=== PATIENT | male | born 1970 | race Caucasian/White ===

== ENCOUNTER 2016-08-10 23:39 | Emergency (ER) | payer MEDICARE, OTHER | END 2016-08-10 23:45 | disposition home or self-care (01) | LOC: CED 23:39 | DX: F11.10 Opioid abuse, uncomplicated (principal); F17.210 Nicotine dependence, cigarettes, uncomplicated; V49.40XA Driver injured in collision with unspecified motor vehicles in traffic accident, initial encounter | CPT/HCPCS: 99283 ==

== ENCOUNTER 2016-10-09 18:05 | Emergency (ER) | payer MEDICARE, OTHER ==
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
== END 2016-10-09 21:29 | disposition home or self-care (01) ==
LOC: CED 18:05
DX: T65.91XA Toxic effect of unspecified substance, accidental (unintentional), initial encounter (principal); I10 Essential (primary) hypertension; F17.200 Nicotine dependence, unspecified, uncomplicated; Z98.890 Other specified postprocedural states; V89.2XXA Person injured in unspecified motor-vehicle accident, traffic, initial encounter; Y92.9 Unspecified place or not applicable
CPT/HCPCS: 70450; 72125; 96360; 99285